=== PATIENT | male | born 1940 | race Caucasian/White ===

== ENCOUNTER 2019-09-22 11:36 | Day surgery (SDC) | payer OTHER ==
[~2019-09-22] VITALS: Ht 175.3 cm; Wt 82.6 kg
[2019-09-22 12:41] VITALS: BP 146/77; PULSE 64; TEMP 97.2
[2019-09-22] MEDS ORDERED: PROAMATINE2.5 MG PO (12:56)
[2019-09-22] MEDS ORDERED: VITAMIN D 400400 IU PO (12:57)
[2019-09-22 15:05] VITALS: BP 151/78; PULSE 63; TEMP 97.4
--- NOTE | 2019-09-22 15:05 | NUR ---
PATIENT BROUGHT TO [facility] BY CART ACCOMPANIED BY PACU STAFF. MONITORS APPLIED. VSS. PATIENT ON ROOM AIR. PATIENT IS HARD OF HEARING. PATIENT DENIES DISCOMFORT AND NAUSEA. PATIENT REQUESTS MUFFIN AND COFFEE.
[2019-09-22 15:20] VITALS: BP 153/75; PULSE 63
--- NOTE | 2019-09-22 15:20 | NUR ---
VSS ON ROOM AIR. PATIENT EATING MUFFIN AND DRINKING COFFEE. AT BEDSIDE AND HELPING HIM EAT. PATIENT DENIES NAUSEA AND DISCOMFORT.
[2019-09-22 15:30] VITALS: BP 140/86; PULSE 62
--- NOTE | 2019-09-22 15:30 | NUR ---
VSS ON ROOM AIR. PATIENT VOIDS IN URINAL AND ON PAD. URINE IS RED. PATIENT DENIES DISCOMFORT AND NAUSEA. FAMILY AT BEDSIDE. 1540 IV DC'D INTACT, PRESSURE AND BANDAGE APPLIED. TIP INTACT. 1550 DISCHARGE INSTRUCTIONS GIVEN WRITTEN AND ORAL. QUESTIONS ANSWERED AND FAMILY VOICED UNDERSTANDING. 1600 PATIENT DISCHARGED PER WHEELCHAIR [facility]
== END 2019-09-22 16:00 | disposition home or self-care (01) ==
LOC: SDCO 11:36
DX: C65.1 Malignant neoplasm of right renal pelvis (principal); L57.0 Actinic keratosis; R41.82 Altered mental status, unspecified; N40.0 Benign prostatic hyperplasia without lower urinary tract symptoms; E78.2 Mixed hyperlipidemia; I10 Essential (primary) hypertension; I25.10 Atherosclerotic heart disease of native coronary artery without angina pectoris; Z86.010 Personal history of colon polyps; Z95.1 Presence of aortocoronary bypass graft; Z88.8 Allergy status to other drugs, medicaments and biological substances; Z87.891 Personal history of nicotine dependence
CPT/HCPCS: C1769; C1894; C2617; J0690; J2405; J2704; J3010; J7120